=== PATIENT | female | born 1950 | race Caucasian/White ===

== ENCOUNTER → 2023-11-30 12:34 | Outpatient (REF) | payer MEDICARE, SELFPAY | LOC: DHCBS MAIN 12:34 | PROVIDERS: ATTENDING PHYSICIAN Internal Medicine Cardiovascular Disease; FAMILY PHYSICIAN Internal Medicine | DX: I10 Essential (primary) hypertension (principal); R94.31 Abnormal electrocardiogram [ECG] [EKG]; I48.91 Unspecified atrial fibrillation | CPT/HCPCS: 93306 ==

== ENCOUNTER → 2024-02-27 09:02 | Day surgery (SDC) | payer MEDICARE, SELFPAY ==
[2024-02-27 10:55] VITALS: BMI 40.6
--- NOTE | 2024-02-27 11:15 | ITS.CL.CARDI ---
Cork [facility]older - Cardioversion
Cardioversion
Procedure Report:
Date of Procedure: February 27 2024
Procedure: Cardioversion
Indication: Symptomatic atrial fibrillation
Performing Physician: Alberto Ryan DO, FACC
Technique: The patient was brought to the holding area. Signed informed consent was obtained. A time out was called and performed. The patient was anesthetized by the anesthesia service. Anticoagulation status was reviewed and appropriate. R2 pads
were placed anteriorly and posteriorly. A 250 J synchronized biphasic shock restored normal sinus rhythm without significant bradycardia. There were no complications.
Conclusion: Uncomplicated cardioversion from atrial fibrillation to sinus rhythm.
Recommendation: Routine post cardioversion care. Continue oysterman anticoagulation.
== END ==
LOC: CATH 09:02
PROVIDERS: ATTENDING PHYSICIAN Nuclear Medicine Nuclear Cardiology
DX: I48.91 Unspecified atrial fibrillation (principal); Z79.01 Long term (current) use of anticoagulants; Z79.82 Long term (current) use of aspirin
CPT/HCPCS: 92960; 93005

== ENCOUNTER → 2024-07-02 09:00 | Outpatient (REF) | payer MEDICARE, OTHER, SELFPAY ==
[2024-07-02 13:37] LABS: % Basophils 0.5 % (0-2); % Eosinophils 1.9 % (0-6); % Immature Granulocytes 0.4 % (0-0.5); % Monocytes 9.2 % (1.7-9.3); Absolute Basophils 0.1 10^3/uL (0-0.2); Absolute Eosinophils 0.2 10^3/uL (0-0.7); Absolute Immature Granulocytes 0.1 10^3/uL (0-0.05); Absolute Lymphocytes 1.5 10^3/uL (1.2-3.4); Absolute Neutrophils 8.5 10^3/uL (1.4-6.5); Hemoglobin 15.1 g/dL (12.0-16.0); Mean Corp Hgb Conc. 33.6 g/dL (33.0-37.0); Mean Corpuscular Hgb 29.8 pg (27.0-31.0); Mean Corpuscular Volume 88.9 fL (81.0-99.0); Mean Platelet Volume 9.9 fL (7.4-10.4); Nucleated Red Blood Cells % 0 %; Platelet Count 254 10^3/uL (130-400); Red Blood Cell Count 5.06 10^6/uL (4.20-5.40); Red Cell Dist. Width 13.4 % (11.5-14.5); White Blood Cell Count 11.3 10^3/uL (4.8-10.8)
[2024-07-02 13:52] LABS: INR 1.33; PT 16.3 Sec (11.4-14.6)
[2024-07-02 13:53] LABS: ALT (SGPT) 29 U/L (0-35); AST (SGOT) 28 U/L (14-36); Albumin 4.3 g/dl (3.5-5.0); Alkaline Phosphatase 70 U/L (38-126); Blood Urea Nitrogen 18 mg/dl (7-17); Calcium 10.3 mg/dl (8.4-10.2); Carbon Dioxide 29 mmol/L (22-30); Chloride 99 mmol/L (98-107); Glucose 82 mg/dl (70-99); Magnesium 1.8 mg/dl (1.6-2.3); Potassium 3.7 mmol/L (3.5-5.1); Sodium 139 mmol/L (135-145); Total Bilirubin 0.6 mg/dl (0.2-1.3); Total Protein 6.9 g/dl (6.3-8.2); eGFR > 60.00
--- NOTE | 2024-07-15 09:51 | OID.L.PAT ---
Pulmonary Nodule Pat Letter
- -
07/15/24
NOVA SULLIVAN
[address]
[place], [place] [address]
Dear NOVA,
A pulmonary nodule was seen on an imaging study done by [facility]. This was reviewed by the [facility] Pulmonary Nodule Advisory Board and the following recommendation was made:
Recommendation: Follow up CT Chest in 3 months
If you have any questions, please do not hesitate to contact your primary care physician. If you are in need of a Physician, you can go to [email or web address] and click on 'Find a Provider'. Type 'Family Medicine' in the search.
Oncology Nurse Navigator
[facility]
[phone]
--- NOTE | 2024-07-15 09:51 | OID.L.REC ---
Pulmonary Nodule Follow Up
- Recommendation
07/15/24
Pulmonary Nodule Review Recommendations
Your patient, NOVA SULLIVAN, had a pulmonary nodule seen on an imaging study done on 07/02/24 in the [facility] Department.
This was reviewed by the [facility] Pulmonary Nodule Advisory Board and the following recommendation was made:
Recommendation: Follow up CT Chest in 3 months
If you have any questions please do not hesitate to contact us.
Sincerely,
Oncology Nurse Navigator
[facility]
[phone]
== END ==
LOC: SDSPAT 09:00
PROVIDERS: ATTENDING PHYSICIAN Internal Medicine Cardiovascular Disease; FAMILY PHYSICIAN Internal Medicine; OTHER PHYSICIAN Internal Medicine Cardiovascular Disease
DX: I48.91 Unspecified atrial fibrillation (principal)
CPT/HCPCS: 75572; 80053; 83735; 85025; 85610; 86850; 86900; 86901; 93005; Q9967

== ENCOUNTER 2024-07-10 08:05 | Day surgery (SDC) | payer MEDICARE, OTHER, SELFPAY ==
[2024-07-02 13:04] VITALS: BMI 43.3
[2024-07-10] VITALS (18 sets, daily range): BP systolic 83–126; BP diastolic 44–89; BMI 42.1
--- NOTE | 2024-07-10 13:01 | ITS.CL.ABL ---
Medical Support Assistant - Ablation
Ablation
Procedure Report:
Primary Reference Test Clerk: Prosper Santos MD
Procedure Date: 07/10/2024
Patient History:
Patient is a pleasant 74-year-old female with a past medical history significant for hypertension, hypercholesterolemia, obstructive sleep apnea, morbid obesity BMI greater than 40, persistent symptomatic atrial fibrillation.
See H&P for complete details.
Indication:
Symptomatic persistent atrial fibrillation
Early recurrence following cardioversion
Arrhythmia Specific History:
Prior Medical Therapies for Rate and Rhythm Control:
X Beta-garret
[ ] Calcium channel-garret
[ ] Amiodarone
[ ] Dronederone
[ ] Sotalol
[ ] Flecainide
[ ] Dofetilide
[ ] Options limited by bradycardia
[ ] Options limited by comorbid renal disease
Prior Procedural Therapies for AF/AFL:
X Cardioversion
[ ] Pulmonary Vein Isolation
[ ] Posterior Wall Isolation
[ ] Additional lines (Specify)
[ ] Surgical Pope-MAZE or PVI (Specify)
Procedure Performed:
X AF ablation procedure (09260) -- includes LA/CS pacing, trans-septal, 3D mapping, + ICE
[ ] +IV drug (91823)
[ ] +Other Arrhythmia (75302)
X +Other AF Line/ablation (66537) -- posterior wall isolation
Risks and expected recovery has been explained in detail. Alternative options have been explored, and in a shared-decision making fashion we have decided that this was the most appropriate procedure.
Method
NPO status confirmed. Grounding pad applied. Defibrillator pads applied. Continuous surface ECG, pulse oximetry, and blood pressure were monitored. Procedure was performed under general anesthesia, with anesthesia services.
Both groins were clipped, prepped with Chloraprep, and draped in sterile fashion. Time out was called. Local anesthesia administered with bupivacaine. The right and left femoral veins were accessed for catheter placement, using ultrasound guidance,
micro-puncture needle/wire, and modified seldinger technique. 3 sheaths were placed. The following catheters were used:
[ ] Tacticath SE (D/F Curve) ablation catheter
X Viewflex 9Fr ICE catheter
X Inquiry decapolar 6Fr diagnostic catheter
[ ] CRD Hex 6Fr
[ ] Arctic Front Advance Cryoballoon ([ ]28mm[ ]23mm)
[ ] Achieve Advance mapping catheter ([ ]15mm[ ]20mm)
X FlexCath Contour 10 Fr with PulseSelect PFA Catheter
X Advisor HD Grid Mapping Catheter, SE
[ ] Acuson AcuNav 8 Fr ICE catheter
[ ]Other: [ ]
Intracardiac ultrasound (ICE) was carefully advanced into the right atrium to guide sheath placement over a J-wire, catheter placement, guide trans-septal puncture, identify potential complications, identify anatomic structures and ensure proper
contact between ablation catheter and tissue. A trace basal pericardial effusion was noted which remained unchanged throughout the procedure and the procedure completion.
Heparin was given prior to trans-septal puncture. Heparin was given to achieve and maintain a target ACT of 300-400 seconds throughout the procedure. Prior to transseptal, there was concern of thrombus in the left atrial appendage. Left atrial
appendage size was quite small by intracardiac ultrasound as well as CT scan. CT scan had reported no left atrial appendage thrombus. Given concern for thrombus, SADIA was performed by Dr. Garrett Lagunas (see separate report). There was no
reported left atrial appendage thrombus.
Trans-septal access was performed under ICE guidance. The trans-septal puncture was performed with a SafeSept wire through a Brockenbrough needle assembly through the steerable sheath. The wire was visualized as it entered the LSPV and system
advanced under ICE guidance and fluoroscopy into the LA. The Brockenbrough needle assembly, SafeSept wire and sheath dilator were removed under negative pressure. LA pressure was measured and recorded.
ICE and 3D mapping was performed to identify relevant cardiac structures. A careful 3D map was created to assess for regions of low-voltage and abnormal electrogram signals using HD grid mapping catheter and PulseSelect catheter. Additional mapping
was performed as outlined below.
Prior to ablation, glycopyrrolate was provided. PulseSelect catheter was advanced over J-wire to the ostium of each vein. Pulmonary vein isolation was performed with ostial and antral lesions in a circumferential manner. Contact was visualized via
EAM, ICE, fluoroscopy, and EGM signals. Posterior wall isolation was performed by anchoring the J-wire within the pulmonary vein and placing the PulseSelect catheter in contact with the posterior wall as visualized by aforementioned methods.
Following completion of ablation lesions, sinus rhythm was restored with a 200J synchronized DCCV and a post-ablation voltage/activation map was performed in sinus rhythm. Entrance and exit block were confirmed for each vein and the posterior wall.
Catheter and sheath were removed from the left atrium and post-ablation intracardiac echo evaluation was consistent with pre-ablation with no changes and no pericardial effusion and there is no left atrial thrombus or left ventricle thrombus seen.
Electrophysiology study was performed. Hemostasis was obtained with figure of 8 stitch for each groin and with manual pressure. Protamine was used for reversal.
Estimated Blood Loss
5 mL
Complications
None
Fluoroscopy: 3.1 minutes; 7.98 mGy; DAP 2.79
Baseline Intervals:
Rhythm: AF
QRS: 69 ms
Post-Procedure Intervals:
KS: 196 ms
QRS: 74 ms
QT: 435 ms
QTc: 458 ms
AVWB: 410 ms
AVNERP: 600/330 ms
AERP: 600/230 ms
Recommendations
- Bedrest with straight-leg precautions as ordered
- Admit with anticipate discharge home tomorrow after overnight observation
- Resume home medications as indicated
- Ok to resume anticoagulation tonight if patient and groin sites stable
- PPI daily for 30 days
- Plan for follow-up in office as scheduled
Jelani Morfin DO
Clinical Cardiac Sand Cutting Machine Operator
cc: Kwan Stover MD; Prosper Santos MD
[2024-07-10 14:02] LABS: ACT-LR - POC 271 Seconds (116-155)
[2024-07-10 14:25] LABS: ACT-LR - POC 334 Seconds (116-155)
[2024-07-10 14:53] LABS: ACT-LR - POC 311 Seconds (116-155)
[2024-07-10 15:46] LABS: ACT-LR - POC 353 Seconds (116-155)
[2024-07-10 16:09] LABS: ACT-LR - POC 158 Seconds (116-155)
[2024-07-10 16:15] LABS: ACT-LR - POC 351 Seconds (116-155)
[2024-07-10 16:26] LABS: ACT-LR - POC 170 Seconds (116-155)
[2024-07-10] MEDS: LOPRESSOR PO (20:51)
--- NOTE | 2024-07-10 20:52 | PTCARENOTE ---
assumed care of patient at the change of shift. AAOx3. bedrest. R groin figure of 8 sutures removed at 2029-no issues. clean dressing applied. +pulses. SR 80s. bp 95/68. LE/ankle edema noted-patient states worsening recently. reviewed plan of care
with patient and verbalized understanding. bedrest until 2099. call granger within reach. calls appropriately.
patients home dose of Lopressor 75mg is due. blood pressures 90s/50-60s. HR 80s. updated Dr. Ryan. will hold 75mg of lopressor and give 25mg instead, per MD. see MAR.
[2024-07-10] MEDS: XALATAN OPHTHALMIC SOLUTION 1 DROP BOTH EYES (21:08)
[2024-07-10] MEDS: ANESTHETIC LOZENGE 1 LOZENGE PO (21:08)
[2024-07-10] MEDS: LOPRESSOR 25 MG PO (21:08)
[2024-07-10] MEDS: CYMBALTA DELAYED RELEASE 60 MG PO (21:10)
[2024-07-10] MEDS: ELIQUIS 5 MG PO (23:00)
[2024-07-11 04:16] VITALS: BP 125/76
[2024-07-11 04:40] LABS: Hematocrit 40.2 % (37.0-47.0); Hemoglobin 13.1 g/dL (12.0-16.0); Mean Corp Hgb Conc. 32.6 g/dL (33.0-37.0); Mean Corpuscular Hgb 29.6 pg (27.0-31.0); Mean Corpuscular Volume 90.7 fL (81.0-99.0); Mean Platelet Volume 9.8 fL (7.4-10.4); Platelet Count 231 10^3/uL (130-400); Red Blood Cell Count 4.43 10^6/uL (4.20-5.40); Red Cell Dist. Width 13.9 % (11.5-14.5); White Blood Cell Count 11.9 10^3/uL (4.8-10.8)
[2024-07-11 05:01] LABS: Blood Urea Nitrogen 20 mg/dl (7-17); Calcium 9.5 mg/dl (8.4-10.2); Carbon Dioxide 28 mmol/L (22-30); Chloride 100 mmol/L (98-107); Estimated Creatinine Clearance 71 ml/min; Glucose 159 mg/dl (70-99); Magnesium 1.7 mg/dl (1.6-2.3); Potassium 4.2 mmol/L (3.5-5.1); Sodium 139 mmol/L (135-145); eGFR > 60.00
[2024-07-11 07:07] VITALS: BP 109/62
[2024-07-11] MEDS: LIPITOR 40 MG PO (07:59)
[2024-07-11] MEDS: ELIQUIS 5 MG PO (07:59)
[2024-07-11] MEDS: LOPRESSOR 75 MG PO (07:59)
[2024-07-11] MEDS: ANESTHETIC LOZENGE 1 LOZENGE PO (07:59)
[2024-07-11] MEDS: HYZAAR 100-25 TABLET 1 TAB PO (07:59)
--- NOTE | 2024-07-11 09:22 | CM ---
Chart reviewed. Patient is independent of ADLS, lives alone in a 1 STH, 0 ALISSA, 0 DME. Patient to stay at [facility] tonight and then return home tomorrow.
--- NOTE | 2024-07-11 09:47 | PTCARENOTE ---
Pt seen by . Telemetry and IV device removed. Discharge instructions reviewed with pt and her godmother regarding activity and driving instructions, wound care, medications and their possible side effects and follow up appt's . Very good
understanding verbalized. Pt escorted out via wheelchair and discharged to home.
--- NOTE | 2024-07-11 09:51 | W.PN.CARDCBS ---
Addendum entered and electronically signed by Fer Meyer MD 07/11/24 10:00:
Patient seen and examined
Agree with FLOW MACHINE OPERATOR note and assessment
Agree with FLOW MACHINE OPERATOR plan
Exam:
As per FLOW MACHINE OPERATOR note
Cor regular without murmur rub or gallop
Bilateral groins clean dry and intact
Alert and x 3
JVP 6
Nonfocal neurologically
74-year-old female with a past medical history significant for hypertension, hypercholesterolemia, obstructive sleep apnea, morbid obesity BMI greater than 40, persistent symptomatic atrial fibrillation.
Impression:
Symptomatic persistent Afib
post PVI/PFA 07/10/24
HTN
HLD
suspected SWATI
Depression
Glaucoma
Plan:
post ablation feels good
groin stable
tele SR no sig ectopy
OAC Eliquis
continue metoprolol 75mg bid
Activity restrictions reviewed
f/u DCA 6-8 weeks
home today
Original Note:
Today's Communication / Plan
-
stable for d/c home
Impression / Plan
-
PCP: Kwan Stover MD
CDY: Prosper Santos MD
74-year-old female with a past medical history significant for hypertension, hypercholesterolemia, obstructive sleep apnea, morbid obesity BMI greater than 40, persistent symptomatic atrial fibrillation.
Impression:
Symptomatic persistent Afib
post PVI/PFA 07/10/24
HTN
HLD
suspected SWATI
Depression
Glaucoma
Plan:
post ablation feels good
groin stable
tele SR no sig ectopy
OAC Eliquis
continue metoprolol 75mg bid
Activity restrictions reviewed
f/u DCA 6-8 weeks
home today
Progress Note - Rn Support Services
Subjective
Date of Service: July 11, 2024
denies cp, sob
Objective
Labs:
07/11/24 04:22
07/11/24 04:22
Labs
Hgb 13.1 g/dL (12.0-16.0) 07/11/24 04:22
Hct 40.2 % (37.0-47.0) 07/11/24 04:22
Plt Count 231 10^3/uL (130-400) 07/11/24 04:22
Sodium 139 mmol/L (135-145) 07/11/24 04:22
Potassium 4.2 mmol/L (3.5-5.1) 07/11/24 04:22
BUN 20 mg/dl (7-17) H 07/11/24 04:22
Creatinine 0.8 mg/dL (0.6-1.0) 07/11/24 04:22
Glucose 159 mg/dl (70-99) H 07/11/24 04:22
Vital Signs and I&O:
Vital Signs
Temp Pulse Resp BP Pulse Ox
98.5 F 84 20 109/62 100
07/11/24 07:05 07/11/24 08:45 07/11/24 07:05 07/11/24 07:07 07/11/24 08:14
Vital Signs
Temp Pulse Resp BP Pulse Ox
98.5 F 84 20 109/62 100
07/11/24 07:05 07/11/24 08:45 07/11/24 07:05 07/11/24 07:07 07/11/24 08:14
Intake & Output
07/09/24 07/10/24 07/11/24 07/12/24
06:59 06:59 06:59 06:59
Intake Total 400 / 400 240 / 240
Output Total 300 / 300
Balance 100 / 100 240 / 240
Physical Exam
Physical Exam
NAD< AOX3
S1, S2, RRR
CTAB, non labored
SNTND Bsx4
R fem site c/d/i no HT< soft
--- NOTE | 2024-07-11 11:45 | W.DS.TRANS ---
DC Summary - Speech Writer
-
Discharge Instructions:
Sleep Apnea Risk High
Discharge Diagnosis/Procedures AFib, s/p ablation
Diet Low Cholesterol
Driving Restrictions No driving for 24 hours
Instructions:
Stand-Alone Forms: DC Instructions- Cath/EP Lab
Changes to Home Medications: No
Discharge Medications:
DC Medications w/original date entered in [facility] [employer] [facility]
apixaban 5 mg tablet (Eliquis) 5 mg PO BID 02/27/24
atorvastatin 40 mg tablet 40 mg PO DAILY 02/27/24
bimatoprost 0.01 % eye drops (Lumigan) 1 drp BOTH EYES HS 02/27/24
duloxetine 60 mg capsule,delayed release 60 mg PO HS 02/27/24
losartan 100 mg-hydrochlorothiazide 25 mg tablet 1 tab PO DAILY 02/27/24
metoprolol tartrate 50 mg tablet 75 mg PO BID 02/27/24
cholecalciferol (vitamin D3) 125 mcg (5,000 unit) tablet (Vitamin D3) 125 mcg PO DAILY 06/27/24
mecobalamin (vitamin B12) 1,000 mcg chewable tablet 3,000 mcg PO DAILY 06/27/24
Home Medication Changes
Pending Results: No
[2024-07-11 18:39] LABS: Hepatitis C Antibody Negative (Negative)
== END 2024-07-11 09:35 | disposition home or self-care (01) ==
LOC: CATH 08:05
PROVIDERS: Nurse Practitioner Adult Health; ATTENDING PHYSICIAN Internal Medicine Cardiovascular Disease; FAMILY PHYSICIAN Internal Medicine; OTHER PHYSICIAN Internal Medicine Cardiovascular Disease
DX: I48.19 Other persistent atrial fibrillation (principal); E66.01 Morbid (severe) obesity due to excess calories; G47.33 Obstructive sleep apnea (adult) (pediatric); E78.00 Pure hypercholesterolemia, unspecified; I10 Essential (primary) hypertension; Z68.41 Body mass index [BMI] 40.0-44.9, adult; R53.83 Other fatigue; R00.2 Palpitations; R06.02 Shortness of breath; R91.8 Other nonspecific abnormal finding of lung field; M19.90 Unspecified osteoarthritis, unspecified site; H40.9 Unspecified glaucoma; F32.A Depression, unspecified; D72.829 Elevated white blood cell count, unspecified; Z79.01 Long term (current) use of anticoagulants; Z79.899 Other long term (current) drug therapy; Z87.891 Personal history of nicotine dependence
CPT/HCPCS: 93312; 93325; 93320; C1732; C1894; C1730; C1769; C1892; C1733; 80048; 83735; 85027; 85347; 86803; 86900; 86901; 93005; 93656; 93657; C1766

== ENCOUNTER → 2025-03-19 11:34 | Outpatient (REF) | payer MEDICARE, OTHER, SELFPAY ==
[2025-03-19 12:23] LABS: Hematocrit 45.2 % (37.0-47.0); Hemoglobin 14.6 g/dL (12.0-16.0); Mean Corp Hgb Conc. 32.3 g/dL (33.0-37.0); Mean Corpuscular Volume 90.0 fL (81.0-99.0); Nucleated Red Blood Cells % 0 %; Platelet Count 278 10^3/uL (130-400); Red Cell Dist. Width 13.7 % (11.5-14.5)
[2025-03-19 12:38] LABS: INR 1.15; PT 15.3 Sec (11.4-14.6)
[2025-03-19 13:03] LABS: ALT (SGPT) 21 U/L (0-35); AST (SGOT) 22 U/L (14-36); Albumin 4.7 g/dl (3.5-5.0); Alkaline Phosphatase 68 U/L (38-126); Blood Urea Nitrogen 12 mg/dl (7-17); Calcium 10.5 mg/dl (8.4-10.2); Carbon Dioxide 29 mmol/L (22-30); Chloride 100 mmol/L (98-107); Glucose 96 mg/dl (70-99); Magnesium 1.8 mg/dl (1.6-2.3); Potassium 3.5 mmol/L (3.5-5.1); Sodium 138 mmol/L (135-145); Total Protein 7.5 g/dl (6.3-8.2); eGFR > 60.00
== END ==
LOC: SDSPAT 11:34
PROVIDERS: ATTENDING PHYSICIAN Internal Medicine Cardiovascular Disease; FAMILY PHYSICIAN Internal Medicine; OTHER PHYSICIAN Internal Medicine Cardiovascular Disease
DX: I48.91 Unspecified atrial fibrillation (principal)
CPT/HCPCS: 36415; 80053; 83735; 85025; 85610; 86850; 86900; 86901; 93005

== ENCOUNTER 2025-04-02 10:26 | Day surgery (SDC) | payer MEDICARE, OTHER, SELFPAY ==
[2025-03-19 11:56] VITALS: BMI 41.8
[2025-04-02] VITALS (9 sets, daily range): BP systolic 94–149; BP diastolic 51–67; BMI 42.1
--- NOTE | 2025-04-02 12:35 | ITS.CL.ABL ---
Certification Engineer - Ablation
Ablation
Procedure Report:
ELECTROPHYSIOLOGIC STUDY AND POSSIBLE ABLATION
DATE: April 02, 2025
Primary Care Provider:
Kwan Stover MD
Primary Math Specialist:
Dr Prosper Santos
Dr Ender Morfin
INDICATION:
Symptomatic Atrial Fibrillation.
She underwent PVI 07/10/2024. She has recurred with symptomatic paroxysmal atrial fibrillation.
In addition to concerns over recurrent symptomatic atrial fibrillation, she has concerns over long-term anticoagulation needs.
She finds all available DOACs cost prohibitive for long-term use. She describes that she 'will never feel safe' taking warfarin.
She presents today for repeat mapping and ablation as well as implantation of a loop recorder to help guide anticoagulation strategy post ablation.
HISTORY: See H and P.
Symptomatic AF, poorly controlled with attempted medical therapy
HAS-BLED:
Age
CHADSVASc: 3
HTN
Age
F Gender
Additional factors contributing to atrial fibrillation is morbid obesity
PRESENTING RHYTHM: SR with bursts of atrial tachycardia
HISTORY: See H and P.
Symptomatic AF, poorly controlled with attempted medical therapy.
ANTICOAGULATION: Eliquis 5 mg twice daily
'TIME-OUT': called and confirmed.
SEDATION/ANESTHESIA: provided via the anesthesia department using general anesthesia.
PROCEDURE:
Ultrasound Guidance with real-time visualization of needle insertion and vessel patency performed by fl for femoral venous Vascular Access.
Under real-time US guidance, the needle was advanced with negative pressure into the vein. The needle was seen entering the vessel lumen with a good return of dark red flow, the syringe was removed, non-pulsatile, dark red blood low was noted and
the wire was passed without difficulty, then the needle was removed. US confirmed the wire was in the vein, not going into an artery,
Images were taken and saved for the patient's permanent record. Imaging findings typical femoral venous anatomy. Direct visualization of needle puncture into the femoral vein was observed and recorded.
A decapolar CS catheter was placed within the CS for mapping and pacing.
The intracardiac ultrasound catheter was positioned in the RA for continuous intracardiac ultrasound imaging.
Heparin bolus and infusion to target ACT at 300 -350 seconds was administered. Transseptal puncture was performed. This entailed advancing a sheath with dilator into the superior vena cava and withdrawing both (monitoring intracardiac ultrasound,
fluoroscopy and tip pressure) with the tip oriented toward the atrial septum. The fossa ovalis was engaged (indicated by sudden displacement of the sheath tip as well as tenting of the fossa seen on intracardiac ultrasound).
Transseptal puncture was performed. Left atrial catheter position was confirmed by echocardiographic imaging, pressure monitoring (LA mean pressure 10 mm Hg) and fluoroscopy. The sheath was advanced over the dilator and positioned in the left
atrium.
The [employer].coma multipolar mapping/ablation Sphere-9 catheter was positioned through the transseptal sheath for high density mapping.
Geometry and voltage mapping was performed using the Comparis[employer]coma mapping system for three-dimensional electroanatomical mapping.
Catheter positioning was guided and confirmed using both I.C.E. and fluoroscopy.
High density electroanatomical three-dimensional mapping demonstrated 4 pulmonary vein LSPV, LIPV, RSPV, RIPV.
There is electrical isolation of each of the pulmonary veins except for the right superior pulmonary vein towards its anterior quadrant.
Delivery of pulsed electric field energy using the sphere 9 catheter at this location electrically isolated the pulmonary vein.
Further pulsed electric field energy deliveries were applied in and around this location to widen antral/wide area ablation lesion set about the right superior pulmonary vein.
There are runs of atrial tachycardia which are nonsustained/self terminating with earliest activation at the gaby between the right superior and right inferior pulmonary vein.
The atrial tachycardia was ablated using pulsed electric field energy via the sphere 9 catheter.
After accomplishing pulmonary venous isolation and ablating the atrial tachycardia, mapping identified additional areas likely to be extra PV contributors to atrial fibrillation. These areas demonstrated patchy low voltage as well as complex
fractionated electrograms. These areas can be sites for the formation of rotors which can drive and maintain atrial fibrillation. These areas are known to be significant contributors to initiation and perpetuation of atrial fibrillation.
Additional energy applications/additional ablation sets targeted extra PV contributors to atrial fibrillation. There is a corridor of mappable signals at the posterior left atrium from the roof to the floor of the left atrium just rightward of
midline with multiple areas of patchy signal/electrograms and complex fractionated electrograms.
Targets for additional PFA ablation included:
LA posterior wall targeted with pulsed electric field energy isolating the posterior wall of the left atrium
After ablation of the posterior wall, additional targets were addressed:
LA inferior floor
The ridge of tissue between the left atrial appendage and the left sided pulmonary veins (Ligament of Raymond )
These areas were ablated using pulsed electric field energy eliminating the extra PV contributors to atrial fibrillation.
Post ablation mapping finds entrance and exit block at each of the pulmonary veins (LSPV, LIPV, RSPV, RIPV), the LA posterior wall and at the additional lines at the inferior/floor of the LA and the Ligament of Marshal rendering the sites no longer
able to contribute to atrial fibrillation.
Programmed electrostimulation including burst atrial pacing as well the delivery of decremental extrastimuli down to atrial effective refractory period and no sustained arrhythmias could be induced.
I.C.E. :
Pre-Ablation Post-Ablation
LVEF: 55 % 55 %
WMA: none none
Pericardial effusion: none none
COMPLICATIONS:
none
SUMMARY:
- Mapping and ablation to isolate the PVs resulting in electrical isolation of the pulmonary veins
- Additional AF ablation sets X 3 after PVI (LA posterior wall, Inf/floor of the LA posterior wall the ligament of Raymond) resulting in elimination of the targeted extra PV contributors to atrial fibrillation.
- Mapping and ablation of second tachycardia (focal left atrial tachycardia) rendering it noninducible with programmed electrical stimulation
- 3-D Electroanatomical Mapping
- Intracardiac Ultrasound
- Ultrasound guidance for vascular access
Post ablation, I discussed today's findings and results with the patient's friend, Lilo.
RECOMMENDATIONS:
- Observe in monitored bed.
- Maintain oral anticoagulation.
- Office visit with Yuni Lopez NP on July 14, 2025
- Continue cardiovascular care with Dr. Prosper Santos and I can see her on an as-needed basis regarding electrophysiologic concerns.
Copy to:
Kwan Stover MD
Prosper Santos MD
[2025-04-02 13:33] LABS: ACT-LR - POC 343 Seconds (116-155)
[2025-04-02 13:56] LABS: ACT-LR - POC 311 Seconds (116-155)
[2025-04-02] MEDS: ANESTHETIC LOZENGE 1 LOZENGE PO (15:38)
== END 2025-04-02 17:15 | disposition home or self-care (01) ==
LOC: CATH 10:26
PROVIDERS: ATTENDING PHYSICIAN Internal Medicine Cardiovascular Disease; FAMILY PHYSICIAN Internal Medicine; OTHER PHYSICIAN Internal Medicine Cardiovascular Disease
DX: I48.19 Other persistent atrial fibrillation (principal); Z09 Encounter for follow-up examination after completed treatment for conditions other than malignant neoplasm; E78.5 Hyperlipidemia, unspecified; F32.A Depression, unspecified; F41.9 Anxiety disorder, unspecified; I10 Essential (primary) hypertension; Z79.01 Long term (current) use of anticoagulants; Z79.899 Other long term (current) drug therapy; Z88.5 Allergy status to narcotic agent; R91.8 Other nonspecific abnormal finding of lung field; I47.19 Other supraventricular tachycardia; E66.01 Morbid (severe) obesity due to excess calories; Z87.891 Personal history of nicotine dependence
CPT/HCPCS: 33285; C1733; C1730; C1892; C1769; C1766; C1894; 85347; 93005; 93655; 93656; 93657; C1760; C1764

== ENCOUNTER 2025-05-14 11:08 | Day surgery (SDC) | payer MEDICARE, OTHER, SELFPAY ==
[2025-05-14 11:20] VITALS: BMI 42.9
[2025-05-14 11:37] VITALS: BP 128/72
[2025-05-14 12:21] LABS: Hematocrit 41.2 % (37.0-47.0); Hemoglobin 13.7 g/dL (12.0-16.0); Mean Corp Hgb Conc. 33.3 g/dL (33.0-37.0); Mean Corpuscular Volume 88.8 fL (81.0-99.0); Platelet Count 239 10^3/uL (130-400); Red Cell Dist. Width 14.3 % (11.5-14.5)
[2025-05-14 13:19] LABS: Blood Urea Nitrogen 15 mg/dl (7-17); Calcium 10.0 mg/dl (8.4-10.2); Carbon Dioxide 29 mmol/L (22-30); Chloride 101 mmol/L (98-107); Estimated Creatinine Clearance 81 ml/min; Glucose 117 mg/dl (70-99); Potassium 3.6 mmol/L (3.5-5.1); Sodium 136 mmol/L (135-145); eGFR > 60.00
--- NOTE | 2025-05-14 14:22 | ITS.CL.IMPLP ---
Pl Sql Developer - Implant Loop
Implant Loop
Procedure Report:
Primary Physician: Dr. Kwan Stover
Primary Loan Coordinator: Dr Prosper Santos
Procedure Date: 05/14/2025
Procedure:
1. Removal of Implanted Loop Recorder
History/Indication:
1. See office H&P for complete history.
2. Patient is a pleasant 75-year-old female with a past medical history significant for glaucoma, depression, sleep apnea, hypertension, hyperlipidemia, obesity, and symptomatic persistent atrial fibrillation status post ablation and ILR implant on
04/02/2025. Patient had noted migration/erosion of the ILR out of the incision with erythema and increased discomfort. Patient presenting for elective ILR explant due to concern for infection and device migration. Additionally, patient was noted to
have a left breast superficial infection distant from ILR insertion site or device. Patient stated that this had progressed but unclear on timeframe. She reported maintaining wound cleaning with hydrogen peroxide and Neosporin.
Methods:
After informed consent was obtained, the patient was brought to the EP laboratory. Continuous ECG, blood pressure, and pulse oximetry were initiated. Sedation was not required. IV antibiotic was provided.
The left chest was prepared and draped in a sterile fashion. A time-out was called. Implantable loop recorder was noted to be exposed to the environment out of the insertion site. With gentle traction, ILR was removed freely. Wound cultures were
obtained from the pocket. ILR pocket was washed antibiotic solution and hemostasis was achieved with manual pressure. Steri-Strips were applied and site was bandaged in standard fashion.
Explanted device: Medtronic model: [id number], Serial# [id number]
Conclusions:
1. Successful removal of ILR
Recommendations:
1. Discharge to home
2. Follow-up will be arranged in the office 7-10 days post-discharge
3. Oral antibiotics
4. Cultures sent
Jelani Morfin, DO, [facility], [facility]
Clinical Cardiac Matting Press Tender
CC:Dr. Kwan Stover; Dr Prosper Santos; Dr Duane Cid
[2025-05-14 15:09] VITALS: BP 141/82
[2025-05-14 15:21] VITALS: BP 135/73
[2025-05-14 15:39] VITALS: BP 118/73
== END 2025-05-14 16:10 | disposition home or self-care (01) ==
LOC: CATH 11:08
PROVIDERS: ATTENDING PHYSICIAN Internal Medicine Cardiovascular Disease; FAMILY PHYSICIAN Internal Medicine; OTHER PHYSICIAN Internal Medicine Cardiovascular Disease
DX: Z09 Encounter for follow-up examination after completed treatment for conditions other than malignant neoplasm (principal); Z79.01 Long term (current) use of anticoagulants; I48.19 Other persistent atrial fibrillation; H40.9 Unspecified glaucoma; G47.30 Sleep apnea, unspecified; I10 Essential (primary) hypertension; E78.5 Hyperlipidemia, unspecified; Z98.890 Other specified postprocedural states; E66.9 Obesity, unspecified
CPT/HCPCS: 33286; 80048; 85027; 87070; 87075; 87147; 87186; 87205; 93005